=== PATIENT | female | born 1940 | race Caucasian/White ===

== ENCOUNTER → 2024-05-14 | Outpatient (CLI) | payer MEDICARE, SELFPAY ==
[2024-05-14 11:25] LABS: Basophils # (Auto) 0.1 Thou/mm3 (0.0-0.2); Basophils % (Auto) 1 % (0-2.5); Eosinophils # (Auto) 0.4 Thou/mm3 (0.0-0.5); Eosinophils % (Auto) 5 % (0-10); Hematocrit 40.4 % (36.0-46.0); Hemoglobin 12.9 g/dL (12.0-16.0); Immature Granulocytes % (Auto) 0 % (0-0); Immature Granulocytes Auto 0.03 Thou/mm3 (0.00-0.00); Lymphocytes # (Auto) 1.9 Thou/mm3 (1.0-4.8); Lymphocytes % (Auto) 27 % (10-50); Mean Corpuscular HGB Conc 31.9 g/dl (31.0-37.0); Mean Corpuscular Hemoglobin 29.1 pg (25.0-35.0); Mean Corpuscular Volume 91 fL (80-100); Monocytes # (Auto) 0.5 Thou/mm3 (0.0-0.8); Monocytes % (Auto) 8 % (0-12); Neutrophils # (Auto) 4.3 Thou/mm3 (1.8-7.7); Neutrophils % (Auto) 60 % (37-80); Nucleated Red Blood Cell % 0 /100 WBC (0); Platelet Count 373 Thou/mm3 (140-440); Red Blood Count 4.43 Miln/mm3 (4.00-5.20); White Blood Count 7.2 Thou/mm3 (3.6-11.0)
[2024-05-14 11:42] LABS: Alanine Aminotransferase 14 U/L (10-49); Albumin, Serum 4.2 gm/dL (3.4-4.8); Albumin/Globulin Ratio 2.1 (1.2-2.2); Alkaline Phosphatase 42 U/L (46-116); Anion Gap 11 (7-16); Aspartate Amino Transferase 22 U/L (0-34); BUN/Creatinine Ratio 24 Ratio (12-20); Bilirubin,Total 0.5 mg/dL (0.3-1.2); Blood Urea Nitrogen 45 mg/dL (9-23); Calcium 10.7 mg/dL (8.3-10.6); Calcium (Corrected) 10.7 mg/dL (8.5-10.1); Carbon Dioxide 27.5 mMol/L (20.0-31.0); Cardiac Risk Estimate 2.4 RATIO (3.7-5.6); Chloride 103 mMol/L (98-107); Cholesterol 145 mg/dL (132-200); Creatinine (Component) 1.9 mg/dL (0.6-1.3); Glucose 102 mg/dL (74-106); HDL Cholesterol 60 mg/dL (40-60); LDL Cholesterol,Calculated 68 mg/dL (0-130); Osmolality,Calculated 292 (275-295); Potassium 4.9 mMol/L (3.4-5.1); Sodium 141 mMol/L (136-145); Total Protein 6.2 gm/dL (5.7-8.2); Triglycerides 87 mg/dL (30-150); eGFR 26 See Note
== END | disposition home or self-care (01) ==
LOC: COPL 10:45
PROVIDERS: PCP Family Medicine; Referring Provider Family Medicine; Visit Provider Family Medicine
DX: I12.9 Hypertensive chronic kidney disease with stage 1 through stage 4 chronic kidney disease, or unspecified chronic kidney disease (principal); N18.32 Chronic kidney disease, stage 3b; D50.8 Other iron deficiency anemias; E78.2 Mixed hyperlipidemia
CPT/HCPCS: 36415; 80053; 80061; 85025

== ENCOUNTER → 2024-05-23 | Outpatient (CLI) | payer MEDICARE, SELFPAY ==
--- NOTE | 2024-05-23 11:15 | XR_ITS ---
Examination: Screening digital mammography, bilateral Computer aided detection 3-D breast Tomosynthesis, bilateral Date and time of exam: 05/23/2024, 11:02 AM AM Comparisons: 05/22/2023 Indications: Screening Technique: Nonmagnified MLO, CC views of the breasts to been obtained, reconstructed from 3-D Tomosynthesis images. R2 computer aided detection program utilized for evaluation of suspicious masses and/or abnormal calcifications. 3-D Tomosynthesis images obtained. Technologist: Findings: There are scattered areas of fibroglandular density. No evidence of abnormal masses or suspicious calcifications. Impression: BI-RADS category 1: Negative findings (within normal) Recommend 1 year follow-up mammogram
== END | disposition home or self-care (01) ==
LOC: CDIM 10:54
PROVIDERS: Referring Provider Family Medicine; Visit Provider Family Medicine
DX: Z12.31 Encounter for screening mammogram for malignant neoplasm of breast (principal); R92.313 Mammographic fatty tissue density, bilateral breasts
CPT/HCPCS: 77063; 77067

== ENCOUNTER → 2024-07-09 | Outpatient (CLI) | payer MEDICARE, SELFPAY ==
[2024-07-09 10:50] LABS: Misc Send Out* See Sep Rpt
[2024-07-09 11:38] LABS: Basophils # (Auto) 0.1 Thou/mm3 (0.0-0.2); Basophils % (Auto) 1 % (0-2.5); Eosinophils # (Auto) 0.3 Thou/mm3 (0.0-0.5); Eosinophils % (Auto) 3 % (0-10); Hematocrit 39.9 % (36.0-46.0); Hemoglobin 12.5 g/dL (12.0-16.0); Immature Granulocytes % (Auto) 1 % (0-0); Immature Granulocytes Auto 0.09 Thou/mm3 (0.00-0.00); Lymphocytes # (Auto) 2.3 Thou/mm3 (1.0-4.8); Lymphocytes % (Auto) 28 % (10-50); Mean Corpuscular HGB Conc 31.3 g/dl (31.0-37.0); Mean Corpuscular Hemoglobin 29.6 pg (25.0-35.0); Mean Corpuscular Volume 95 fL (80-100); Monocytes # (Auto) 0.6 Thou/mm3 (0.0-0.8); Monocytes % (Auto) 7 % (0-12); Neutrophils # (Auto) 4.9 Thou/mm3 (1.8-7.7); Neutrophils % (Auto) 60 % (37-80); Nucleated Red Blood Cell % 0 /100 WBC (0); Platelet Count 439 Thou/mm3 (140-440); RDW Standard Deviation 54.8 fL (36.4-46.3); Red Blood Count 4.22 Miln/mm3 (4.00-5.20); White Blood Count 8.1 Thou/mm3 (3.6-11.0)
[2024-07-09 11:51] LABS: Creatinine,Random Urine 52 mg/dL (30-125); Protein Total, Random Urine 8 mg/dL (1-14)
[2024-07-09 11:52] LABS: Anion Gap 7 (7-16); BUN/Creatinine Ratio 21 Ratio (12-20); Blood Urea Nitrogen 35 mg/dL (9-23); Calcium 9.9 mg/dL (8.3-10.6); Calcium (Corrected) 9.9 mg/dL (8.5-10.1); Carbon Dioxide 28.3 mMol/L (20.0-31.0); Chloride 105 mMol/L (98-107); Creatinine (Component) 1.7 mg/dL (0.6-1.3); Glucose 108 mg/dL (74-106); Magnesium 1.9 mg/dL (1.6-2.6); Osmolality,Calculated 288 (275-295); Sodium 140 mMol/L (136-145); eGFR 29 See Note
[2024-07-09 11:54] LABS: Ferritin 228 ng/mL (7.3-270.7); Iron 71 mcg/dL (50-170); Percent Iron Saturation 20 % (20-55); Total Iron Binding Capacity 347 mcg/dL (250-425); Unsaturated Iron Binding 276 (225-295)
== END | disposition home or self-care (01) ==
LOC: COPL 10:26
PROVIDERS: PCP Family Medicine; Referring Provider Internal Medicine; Visit Provider Internal Medicine
DX: I13.0 Hypertensive heart and chronic kidney disease with heart failure and stage 1 through stage 4 chronic kidney disease, or unspecified chronic kidney disease (principal); N18.4 Chronic kidney disease, stage 4 (severe); I50.9 Heart failure, unspecified; I25.10 Atherosclerotic heart disease of native coronary artery without angina pectoris
CPT/HCPCS: 36415; 80069; 82306; 82570; 82728; 83540; 83550; 83735; 83970; 84156; 85025

== ENCOUNTER → 2024-10-09 | Outpatient (CLI) | payer MEDICARE, SELFPAY ==
[2024-10-09 12:08] LABS: Albumin, Serum 4.2 gm/dL (3.4-4.8); Anion Gap 10 (7-16); BUN/Creatinine Ratio 20 Ratio (12-20); Blood Urea Nitrogen 38 mg/dL (9-23); Calcium 9.9 mg/dL (8.3-10.6); Calcium (Corrected) 9.9 mg/dL (8.5-10.1); Carbon Dioxide 27.7 mMol/L (20.0-31.0); Chloride 104 mMol/L (98-107); Creatinine (Component) 1.9 mg/dL (0.6-1.3); Glucose 129 mg/dL (74-106); Osmolality,Calculated 294 (275-295); Phosphorous 2.5 mg/dL (2.4-5.1); Potassium 4.8 mMol/L (3.4-5.1); Sodium 142 mMol/L (136-145); eGFR 26 See Note
== END | disposition home or self-care (01) ==
LOC: COPL 11:02
PROVIDERS: PCP Family Medicine; Referring Provider Internal Medicine; Visit Provider Internal Medicine
DX: I13.0 Hypertensive heart and chronic kidney disease with heart failure and stage 1 through stage 4 chronic kidney disease, or unspecified chronic kidney disease (principal); N18.4 Chronic kidney disease, stage 4 (severe); I50.9 Heart failure, unspecified; I25.10 Atherosclerotic heart disease of native coronary artery without angina pectoris
CPT/HCPCS: 36415; 80069

== ENCOUNTER → 2025-01-02 | Outpatient (CLI) | payer MEDICARE, SELFPAY ==
[2025-01-02 11:33] LABS: Basophils # (Auto) 0.1 Thou/mm3 (0.0-0.2); Basophils % (Auto) 1 % (0-2.5); Eosinophils # (Auto) 0.3 Thou/mm3 (0.0-0.5); Eosinophils % (Auto) 3 % (0-10); Hematocrit 39.4 % (36.0-46.0); Hemoglobin 12.4 g/dL (12.0-16.0); Immature Granulocytes Auto 0.04 Thou/mm3 (0.00-0.00); Lymphocytes # (Auto) 2.1 Thou/mm3 (1.0-4.8); Lymphocytes % (Auto) 26 % (10-50); Mean Corpuscular HGB Conc 31.5 g/dl (31.0-37.0); Mean Corpuscular Hemoglobin 29.6 pg (25.0-35.0); Mean Corpuscular Volume 94 fL (80-100); Monocytes # (Auto) 0.5 Thou/mm3 (0.0-0.8); Monocytes % (Auto) 6 % (0-12); Neutrophils # (Auto) 5.2 Thou/mm3 (1.8-7.7); Neutrophils % (Auto) 63 % (37-80); Nucleated Red Blood Cell # 0.00 Thou/mm3 (0.00-0.00); Nucleated Red Blood Cell % 0 /100 WBC (0); Platelet Count 432 Thou/mm3 (140-440); RDW Standard Deviation 50.3 fL (36.4-46.3); Red Blood Count 4.19 Miln/mm3 (4.00-5.20); White Blood Count 8.2 Thou/mm3 (3.6-11.0)
[2025-01-02 11:46] LABS: Albumin, Serum 4.5 gm/dL (3.4-4.8); Anion Gap 10 (7-16); BUN/Creatinine Ratio 17 Ratio (12-20); Blood Urea Nitrogen 29 mg/dL (9-23); Calcium 11.1 mg/dL (8.3-10.6); Calcium (Corrected) 11.1 mg/dL (8.5-10.1); Carbon Dioxide 27.0 mMol/L (20.0-31.0); Chloride 104 mMol/L (98-107); Creatinine (Component) 1.7 mg/dL (0.6-1.3); Glucose 109 mg/dL (74-106); Osmolality,Calculated 288 (275-295); Phosphorous 3.0 mg/dL (2.4-5.1); Potassium 4.4 mMol/L (3.4-5.1); Sodium 141 mMol/L (136-145); eGFR 29 See Note
[2025-01-02 11:48] LABS: Iron 90 mcg/dL (50-170); Percent Iron Saturation 25 % (20-55); Total Iron Binding Capacity 355 mcg/dL (250-425); Unsaturated Iron Binding 265 (225-295)
[2025-01-02 11:55] LABS: Vitamin D 25 Hydroxy Total 45.7 ng/mL (7.3-40.2)
== END | disposition home or self-care (01) ==
LOC: COPL 10:11
PROVIDERS: PCP Family Medicine; Referring Provider Internal Medicine; Visit Provider Internal Medicine
DX: I13.0 Hypertensive heart and chronic kidney disease with heart failure and stage 1 through stage 4 chronic kidney disease, or unspecified chronic kidney disease (principal); N18.4 Chronic kidney disease, stage 4 (severe); I50.9 Heart failure, unspecified
CPT/HCPCS: 36415; 80069; 82306; 83540; 83550; 85025

== ENCOUNTER 2025-01-22 12:21 | Emergency (ER) | payer MEDICARE, SELFPAY ==
--- NOTE | 2025-01-22 | XR_ITS ---
Examination: CT maxillofacial, without intravenous contrast. 2-D sagittal reconstructions. 3-D reconstructions. Date and time of exam: January 22, 2025, 1422 hours INDICATIONS: Patient fell today with injury to the face, facial pain CTDI: vol (mGy): 26.8 DLP: (mGycm): 431 Technique: Multiple axial images of maxillofacial region, 3.0 mm slice thickness. 2-D sagittal and coronal reconstructions. 3-D reconstructions. Low dose protocols were performed. One or more of the following dose reduction techniques were used; automated exposure control, adjustment of the mA and/or KV according to patient size, use of iterative reconstruction technique. Findings: Frontal bones frontal sinuses intact Orbital rims intact No nasal bone fracture. No depression zygomatic arches. Pterygoid plates maxilla and the mandible intact IMPRESSION: No acute facial fracture Optic globes appear intact.
--- NOTE | 2025-01-22 | XR_ITS ---
Examination: CT cervical spine without contrast 2-D sagittal reconstructions 2-D coronal reconstructions 3-D reconstructions. Exam date and time: January 22, 2025, 1422 hours INDICATIONS: Patient fell today with injury to the neck, neck pain CTDI:vol (mGy) 14.7 DLP: (mGycm) 303 Technique: Multiple 2 mm axial sections of the cervical spine have been obtained. The coronal and sagittal reconstructions have been obtained. 3-D reconstructions have been obtained. Low dose protocols were performed. One or more of the following dose reduction techniques were used; automated exposure control, adjustment of the mA and/or KV according to patient size, use of iterative reconstruction technique. Findings: Axial sections demonstrate intact base of the skull. C1 exhibit satisfactory relationship to the odontoid. No acute cervical vertebral body fracture seen. Alignment posterior spinous processes satisfactory. Impression: No acute cervical fracture.
--- NOTE | 2025-01-22 | XR_ITS ---
Examination: CT brain head without contrast. 2-D sagittal coronal reconstructions Date and time of exam: January 22, 2025, 1422 hours INDICATIONS: Ground-level fall today with injury to the head, head pain CTDI: vol (mGy): 51.8 DLP: (mGycm): 1032 Technique: Multiple CT axial sections of the brain have been obtained, 5 mm slice thickness. Contrast has not been administered. 2-D sagittal, coronal reconstructions have been obtained Low dose protocols were performed. One or more of the following dose reduction techniques were used; automated exposure control, adjustment of the mA and/or KV according to patient size, use of iterative reconstruction technique. Findings: No significant ventricular enlargement. Intra-axial or extra-axial hemorrhage density is not seen. No mass effect or midline shift Basal cisterns are not remarkable. Fourth ventricle is midline. Cranial vault intact. Soft tissue left scalp hematoma Impression: Negative for acute hemorrhage, mass effect or midline shift
[2025-01-22 12:39] VITALS: PULSE 88; RESP 17; BMI 25.8
[2025-01-22 12:41] VITALS: BP 191/96; PULSE 85; RESP 15; TEMP 36.7; O2SAT 96
--- NOTE | 2025-01-22 12:46 | PD.EDFALL ---
ED Fall Injury RME/HPI General Chief Complaint: Fall Stated Complaint: FALL Time Seen by Provider: 01/22/25 12:46 Arrival date/time: 01/22/25 12:21 RME / HPI RME / HPI Narrative: See [facility] for Dr. Jamison's HPI documentation. Related Data Home Medications ?Medication ?Instructions ?Recorded ?Confirmed allopurinol 100 mg tablet 100 mg PO QDAY 10/12/20 12/26/23 atorvastatin 40 mg tablet 40 mg PO QPM 10/12/20 12/26/23 fenofibrate 160 mg tablet 160 mg PO QPM 10/12/20 12/26/23 fluticasone furoate 100 1 inh inhalation Q24H 10/12/20 12/26/23 mcg/actuation blister powder for inhalation (Arnuity Ellipta) loratadine 10 mg tablet 10 mg PO QDAY 10/12/20 12/26/23 montelukast 5 mg chewable tablet 5 mg PO QDAY 10/12/20 12/26/23 fluticasone propionate 50 50 mcg intranasal BID 08/10/21 12/26/23 mcg/actuation nasal spray,suspension furosemide 20 mg tablet 20 mg PO QDAY 08/10/21 12/26/23 lisinopril 20 mg tablet 20 mg PO QDAY 08/10/21 12/26/23 amlodipine 5 mg tablet 5 mg PO QDAY 12/26/23 12/26/23 clopidogrel 75 mg tablet 75 mg PO QDAY 12/26/23 12/26/23 Previous Rx's ?Medication ?Instructions ?Recorded aspirin 81 mg chewable tablet 81 mg PO QDAY #30 tabs 12/26/23 acetaminophen 300 mg-codeine 30 mg 2 tab PO Q8H PRN pain #20 tabs 01/22/25 tablet cefdinir 300 mg capsule 300 mg PO BID #14 caps 01/22/25 Allergies Allergy/AdvReac Type Severity Reaction Status Date / Time adhesive tape Allergy Severe Rash Verified 08/10/21 09:31 Sulfa (Sulfonamide Allergy Severe Swelling Verified 10/12/20 09:34 Antibiotics) of Lip/Tongue/Throat Review of Systems Review of Systems Systems Reviewed: All systems reviewed, normal except as documented Past Medical History Past Medical History CARDIAC: Positive Myocardial Infarction, Angina, Coronary Artery Disease, Hypercholesterolemia, Congestive Heart Failure, Edema and Hypertension (with meds) RESPIRATORY: Positive Bronchitis GASTROINTESTINAL: Positive Hemorrhoids GENITOURINARY: Positive Genitourinary Disorders, Renal Disease and Kidney Stones MUSCULOSKELETAL: Positive Musculoskeletal Disorders, Arthritis, Gout and Fractures (chest ,foot) ENT: Positive Cataracts OTHER HISTORY: Positive Blood Transfusions and Radiation Therapy Surgical History SURGICAL: Positive Open Heart Surgery, Coronary Artery Bypass Graft, Coronary Stent (4) and Angiogram Social History SMOKING STATUS: Former smoker ED Exam Narrative Physical exam: See MDM for Dr. Jamison's physical exam documentation. Course Quality Measures none Orders Category Date Time Status Bedside COVID-19 Antigen Test NOW Care 01/22/25 12:47 Completed Saline [Insert IV] NOW Care 01/22/25 12:47 Completed Set Up Suture Tray STAT Care 01/22/25 12:47 Completed Wound Care [Wound Care] NOW Care 01/22/25 12:[address] cervical spine wo con Stat Exams 01/22/[address] facial bones wo con Stat Exams 01/22/[address] head/brain wo con Stat Exams 01/22/25 Completed XR chest 1V portable Stat Exams 01/22/25 12:49 Completed XR elbow comp LT min 3V Stat Exams 01/22/25 18:19 Completed Bilirubin,Direct Stat Lab 01/22/25 13:12 Completed CBC Stat Lab 01/22/25 13:12 Completed CMP [Comprehensive Metabolic Panel] Stat Lab 01/22/25 13:12 Completed Magnesium Stat Lab 01/22/25 13:12 Completed TSH [Thyroid Stimulating Hormone] Stat Lab 01/22/25 13:12 Completed Troponin I Stat Lab 01/22/25 13:12 Completed UA, C/S IF [Urinalysis, C/S if Indicated] Stat Lab 01/22/25 17:28 Completed Urine Culture Stat Lab 01/22/25 17:28 Received Ampicillin/Sulbac Inj [Unasyn Inj] 1.5 gm Med 01/22/25 12:47 Discontinued SODIUM CHLORIDE 0.9% (Popper) [Ns 0.9% (P)] 50 ml IV X1 Bacitracin Oint pkt Med 01/22/25 18:30 Discontinued 1 gm TOP X1 ONE Lidocaine 1% 20 ml [Xylocaine 1% 20 ML] Med 01/22/25 12:47 Discontinued 20 ml INFL X1 ONE Morphine* Inj Med 01/22/25 15:04 Discontinued 2 mg IV X1 ONE Ondansetron Inj [Zofran Inj] Med 01/22/25 12:47 Discontinued 4 mg IVP X1 ONE Sodium Chloride 0.9% 1000 ml [Ns] 1,000 ml Med 01/22/25 12:47 Discontinued IV 999 mls/hr TET,DIP/PERT AC (Adult)-Tdap [Boostrix Adult (Tdap) Med 01/22/25 12:47 Discontinued Vacc] 0.5 ml IMI .ONCE ONE cefTRIAXone/D5w 1gm IV premix [Rocephin/D5w 1gm IV Med 01/22/25 18:12 Discontinued premix] 1 gm in 50 ml IV X1 cloNIDine HCL [Catapres] Med 01/22/25 14:32 Discontinued 0.2 mg PO X1 ONE Vital Signs Vital signs: Vital Signs Temperature 98.1 F 01/22/25 12:41 Pulse Rate 85 01/22/25 12:41 Respiratory Rate 15 01/22/25 12:41 Blood Pressure 191/96 H 01/22/25 12:41 Pulse Oximetry (%) 96 01/22/25 12:41 Oxygen Delivery Method Room Air 01/22/25 12:41 Pulse ox is 96% on room air which is adequate. PROCEDURES: Laceration Laceration 1: Site: scalp Side (If applicable): left (Left parietal area) Size (cm): 3.5 Description: linear Depth: simple, single layer Local Anesthetic: lidocaine 1% Amount of anesthesia used (mL): 8 Pre-repair: wound explored and irrigated extensively Skin layer closed with: nylon Suture size (cm): 3-0 Number of sutures: 5 Technique: simple, interrupted Fall MDM Narrative MDM Narrative:: This section includes all my notes and documentations, including HPI, PE, and ED course. Drake Jamison MD HPI: 84-year-old female here after a mechanical fall just [employer]. Tripped over a curb outside, and landed on the back of her head. Uncertain about loss of consciousness. Reports headache and dizziness. No neck pain or back pain. No chest pain or abdominal pain. Reports left elbow pain. No other complaints. ROS: All negative except as documented in HPI. Physical Exam: General:? Alert and oriented.? No acute distress when remaining still. Eyes:? Conjunctivae and lids clear.? EOMI.? PERRL. ENT: Patent airway. Neck:? Supple.? No tenderness. Heart:? RRR. Lungs:? No respiratory distress.? Good air movement.? No rhonchi, wheezing, rales.? Chest:? No tenderness. Abdomen:? Soft and nontender.? Normal bowel sounds.? No distension.? No rebound or guarding.? Back:? No tenderness.? Skin:? Warm and dry.? In the left parietal scalp, there is a plum sized hematoma with 3.5 full?scalp thickness laceration with active bleeding. Neuro:? Alert and oriented X 3.? Cranial Nerves II-XII grossly intact.? No peripheral motor deficits. Musculoskeletal: Equivocal left elbow tenderness. All other major joints and bones are not tender with no limited ROM. I reviewed EMS notes. I reviewed all diagnostic test results: My interpretation of the chest x-ray is: NAD. My interpretation of the left elbow x-rays is no acute fracture. My review of the CT reports is no acute findings. Blood test unremarkable. UA showed positive leukocyte esterase, 21 RBC, 13 WBC, and bacteria. At this point, diagnoses include: Scalp laceration Head injury Fall UTI Left elbow contusion Treatment here included: IV fluid Zofran 4 mg IV Unasyn 1.5 gram IV Morphine 2 mg IV Laceration repair (see procedure note) Significant improvement noted. Recommended outpatient care. Based on my best medical judgment, made decision no further evaluation or treatment indicated at this time. Patient and daughter understands and agrees to the discharge instructions customized and printed, see below. Discharge instructions from Dr. Jamison: 1. After extensive evaluation, fortunately there is no very serious injury.? Such as brain injury or broken neck or internal organ injury. 2. Your scalp laceration was repaired 5 stitches. -- Keep the current dressing intact for 48 hours. -- After 48 hours, change the dressing once daily. And you can shower. -- First remove the dressing gently.? If it does not come off easily, run water through it until it comes off easily. -- Then gently wash with soap and water. -- After completely drying, apply antibiotic ointment and new dressing. -- See your doctor or return here in 10 days for suture removal.? Total of 5 stitches 3. Take Cefdinir for urine infection. 4. Wear left arm sling for only 4 days. Apply ice for 20 minutes every 2-3 hours today and tomorrow. 5. See a private doctor on 01/25/25 for recheck to make sure you are healing well with no complications. Ask to review all test results and official radiology reports, to make sure you receive all necessary follow-ups and monitoring. 6. Seek immediate medical care with severe and persistent headache, persistent vomiting, being extremely drowsy when you should be completely alert and awake,fever, spreading redness from the wound, or with any concerns. Drake Jamison MD Patient data External records reviewed:: [facility] previous records and EMS form Clinical information provided by:: patient and EMS Social determinants that could affect healthcare access:: none Patient has the following chronic illnesses:: CVA, CAD s/p CABG, chronic back pain, CKD, hypertension How is presenting disease/condition affected by chronic disease/condition?: exacerbated by Evaluation data The following diagnostics were reviewed and interpreted by me:: lab results and radiology exam(s) Lab and/or radiology exams considered but not ordered:: None Interpretation Summary: I reviewed all diagnostic test results: My interpretation of the chest x-ray is: NAD. My interpretation of the left elbow x-rays is no acute fracture. My review of the CT reports is no acute findings. Blood test unremarkable. UA showed positive leukocyte esterase, 21 RBC, 13 WBC, and bacteria. Medications / Prescriptions Medications or Prescriptions considered but not ordered:: None Medication administrations:: Medication Administration History Discontinued Medications Bacitracin (Bacitracin Oint 1 Gm Packet) 1 gm TOP X1 ONE Stop: 01/22/25 18:31 Last Admin: 01/22/25 19:29 Dose: 1 gm Documented By: CB Clonidine (Clonidine Hcl 0.1 Mg Tablet) 0.2 mg PO X1 ONE Stop: 01/22/25 14:33 Last Admin: 01/22/25 18:24 Dose: Not Given Documented By: EF Non-Admin Reason: Change of Condition Diphtheria/Tetanus/Acell Pertussis (Diphth,Pertuss(Acell),Tet Vac 0.5 Ml Syr- Adult) 0.5 ml IMi .ONCE ONE Stop: 01/22/25 12:48 Last Admin: 01/22/25 18:24 Dose: Not Given Documented By: EF Non-Admin Reason: Not Given Comments: patient recently got a TDAP shot Sodium Chloride (Ns) 1,000 mls @ 999 mls/hr IV .Q1H1M ONE Stop: 01/22/25 13:47 Last Infusion: 01/22/25 15:01 Dose: Infused Documented By: Admin: 01/22/25 13:48 Dose: 999 mls/hr Documented By: EF Ampicillin Sodium/Sulbactam (Sodium 1.5 gm/ Sodium Chloride) 50 mls @ 100 mls/hr IV X1 ONE Stop: 01/22/25 12:48 Last Infusion: 01/22/25 14:18 Dose: Infused Documented By: Admin: 01/22/25 13:48 Dose: 100 mls/hr Documented By: EF Ceftriaxone Sodium/Dextrose (Rocephin/D5w 1gm Iv Premix) 1 gm in 50 mls @ 100 mls/hr IV X1 ONE Stop: 01/22/25 18:41 Last Infusion: 01/22/25 19:20 Dose: Infused Documented By: Admin: 01/22/25 18:39 Dose: 100 mls/hr Documented By: EF Lidocaine HCl (Lidocaine Hcl 1% 20 Ml Vial) 20 ml INFL X1 ONE Stop: 01/22/25 12:48 Last Admin: 01/22/25 17:49 Dose: 20 ml Documented By: EF Morphine Sulfate (Morphine Sulf Inj 4 Mg/Ml Vial) 2 mg IV X1 ONE Stop: 01/22/25 15:05 Last Admin: 01/22/25 15:39 Dose: 2 mg Documented By: EF Ondansetron HCl (Ondansetron Inj 2 Mg/Ml Inj 2 Ml) 4 mg IVP X1 ONE; Protocol Stop: 01/22/25 12:48 Last Admin: 01/22/25 13:48 Dose: 4 mg Documented By: EF Treatment here included: IV fluid Zofran 4 mg IV Unasyn 1.5 gram IV Morphine 2 mg IV Laceration repair (see procedure note) Consultations Consultation(s) initiated? (list below): No Diagnosis Fall Differential Diagnosis: syncope, dislocation of shoulder region, fracture of wrist and compression fracture Most likely diagnosis given after review of the tests above:: At this point, diagnoses include: Scalp laceration Head injury Fall UTI Left elbow contusion Admission Indicated Admission indicated?: not indicated Explain why admission is indicated or not indicated:: With significant improvement and no condition needing emergent intervention, there was no indication for admission. Admission Request Was there a request for admission?: No Disposition Plan Disposition Plan: Discharge Discharge Attestation Discharge Attestation: The patient and all family members were given an opportunity to ask questions and understood the discharge instructions. Discharge instructions specifically effects, indications for sooner follow up or return to the emergency department, and the expected course of current diagnosis. Patient condition: Stable Discharge Plan Plan Patient Disposition: HOME (Self Care) Prescriptions/Referrals Prescriptions/Med Rec: New acetaminophen-codeine 300-30 mg tablet 2 tab PO Q8H MDD 6 PRN (Reason: pain) Qty: 20 0RF cefdinir 300 mg capsule 300 mg PO BID Qty: 14 0RF No Action atorvastatin 40 mg Tablet 40 mg PO QPM fenofibrate 160 mg Tablet 160 mg PO QPM montelukast 5 mg Tablet,Chewable 5 mg PO QDAY allopurinol 100 mg Tablet 100 mg PO QDAY loratadine 10 mg Tablet 10 mg PO QDAY Arnuity Ellipta 100 mcg/actuation Blister With Device 1 inh INHALATION Q24H lisinopril 20 mg Tablet 20 mg PO QDAY furosemide 20 mg Tablet 20 mg PO QDAY fluticasone propionate 50 mcg/actuation [place],Suspension 50 mcg INTRANASAL BID Protocol: Age Greater than 75 Protocol Text: Age less than 75 years, to be administred with initial in subcutaneous dose Rx Instructions: [place] once in both nostrils in the morning and before bed. clopidogrel 75 mg tablet 75 mg PO QDAY amlodipine 5 mg Tablet 5 mg PO QDAY aspirin 81 mg Tablet,Chewable 81 mg PO QDAY Qty: 30 0RF Referrals: No Primary/Family,Physician [Primary Care Provider] - In 1 week Problem List Clinical Impression: Scalp laceration, Head injury, Fall, UTI (urinary tract infection), Left elbow contusion Patient/Caregiver Discharge Instructions Discharge Activity: activity as tolerated Education Materials: ED Contusion, Elbow, ED Head Injury (Adult), ED Laceration Scalp Sutures or ..., ED CYSTITIS Female Adult Additional Instructions: Discharge instructions from Dr. Yaquelin: 1. After extensive evaluation, fortunately there is no very serious injury.? Such as brain injury or broken neck or internal organ injury. 2. Your scalp laceration was repaired 5 stitches. -- Keep the current dressing intact for 48 hours. -- After 48 hours, change the dressing once daily. And you can shower. -- First remove the dressing gently.? If it does not come off easily, run water through it until it comes off easily. -- Then gently wash with soap and water. -- After completely drying, apply antibiotic ointment and new dressing. -- See your doctor or return here in 10 days for suture removal.? Total of 5 stitches 3. Take Cefdinir for urine infection. 4. Wear left arm sling for only 4 days. Apply ice for 20 minutes every 2-3 hours today and tomorrow. 5. See a private doctor on 01/25/25 for recheck to make sure you are healing well with no complications. Ask to review all test results and official radiology reports, to make sure you receive all necessary follow-ups and monitoring. 6. Seek immediate medical care with severe and persistent headache, persistent vomiting, being extremely drowsy when you should be completely alert and awake,fever, spreading redness from the wound, or with any concerns. Print Language: [place] Stand Alone Forms: [employer] Info., Patient Portal Info Letter
--- NOTE | 2025-01-22 12:49 | XR_ITS ---
EXAMINATION: AP chest single view TECHNIQUE: AP portable upright chest single view Date and time: January 22, 2025, 1304 hours INDICATIONS: Ground-level fall today with injury to the chest, chest pain. FINDINGS: Mild prominence left ventricle CABG No pneumothorax or pulmonary contusion Prominent osteopenia Clavicles ribs appear intact IMPRESSION: No pneumothorax pulmonary contusion or hemothorax
--- NOTE | 2025-01-22 13:12 | PC.NURSE ---
patient BIBA for a fall. per patient she was walking to [employer] and missed the curb step an fell resulting on a lac to her head. patient stated shes on blood thinners and denies LOC.
[2025-01-22 13:28] LABS: Basophils # (Auto) 0.1 Thou/mm3 (0.0-0.2); Basophils % (Auto) 1 % (0-2.5); Eosinophils # (Auto) 0.3 Thou/mm3 (0.0-0.5); Eosinophils % (Auto) 2 % (0-10); Hematocrit 37.4 % (36.0-46.0); Hemoglobin 11.9 g/dL (12.0-16.0); Immature Granulocytes Auto 0.06 Thou/mm3 (0.00-0.00); Lymphocytes # (Auto) 2.1 Thou/mm3 (1.0-4.8); Lymphocytes % (Auto) 18 % (10-50); Mean Corpuscular HGB Conc 31.8 g/dl (31.0-37.0); Mean Corpuscular Hemoglobin 29.7 pg (25.0-35.0); Mean Corpuscular Volume 93 fL (80-100); Monocytes # (Auto) 0.6 Thou/mm3 (0.0-0.8); Monocytes % (Auto) 5 % (0-12); Neutrophils # (Auto) 8.4 Thou/mm3 (1.8-7.7); Neutrophils % (Auto) 73 % (37-80); Nucleated Red Blood Cell # 0.00 Thou/mm3 (0.00-0.00); Nucleated Red Blood Cell % 0 /100 WBC (0); Platelet Count 381 Thou/mm3 (140-440); RDW Standard Deviation 50.3 fL (36.4-46.3); Red Blood Count 4.01 Miln/mm3 (4.00-5.20); White Blood Count 11.6 Thou/mm3 (3.6-11.0)
[2025-01-22 13:47] LABS: Alanine Aminotransferase 12 U/L (10-49); Albumin, Serum 4.3 gm/dL (3.4-4.8); Albumin/Globulin Ratio 2.5 (1.2-2.2); Alkaline Phosphatase 38 U/L (46-116); Anion Gap 10 (7-16); Aspartate Amino Transferase 23 U/L (0-34); BUN/Creatinine Ratio 19 Ratio (12-20); Bilirubin,Direct 0.2 mg/dL (0.0-0.3); Bilirubin,Total 0.4 mg/dL (0.3-1.2); Blood Urea Nitrogen 35 mg/dL (9-23); Calcium 9.7 mg/dL (8.3-10.6); Calcium (Corrected) 9.7 mg/dL (8.5-10.1); Carbon Dioxide 24.6 mMol/L (20.0-31.0); Chloride 106 mMol/L (98-107); Creatinine (Component) 1.8 mg/dL (0.6-1.3); Estimated Creatinine Clearance 23.7 mL/min (>60); Globulin 1.7 gm/dL (2.3-3.5); Glucose 125 mg/dL (74-106); Magnesium 1.9 mg/dL (1.6-2.6); Osmolality,Calculated 290 (275-295); Potassium 4.9 mMol/L (3.4-5.1); Sodium 141 mMol/L (136-145); Thyroid Stimulating Hormone 1.73 uIU/mL (0.55-4.78); Total Protein 6.0 gm/dL (5.7-8.2); Troponin I < 0.020 ng/mL (0.0-0.045); eGFR 27 See Note
[2025-01-22] MEDS: SODIUM CHLORIDE 0.9% 1000 ML 1,000 ML 999 ML IV (13:48)
[2025-01-22] MEDS: ONDANSETRON INJ 2 MG/ML INJ 2 ML 4 MG IVP (13:48)
[2025-01-22] MEDS: AMPICILLIN/SULBAC INJ 1.5 GM in SODIUM CHLORIDE 0.9% (Popper) 50 ML IV (13:48)
[2025-01-22] MEDS: MORPHINE SULF INJ 4 MG/ML VIAL 2 MG IV (15:39)
[2025-01-22 17:33] LABS: Collection Type, Urine Clean Catch
[2025-01-22 17:44] LABS: Bacteria,Urine Rare; Bilirubin,Urine Negative (Negative); Blood,Urine Negative (Negative); Clarity,Urine Clear (Clear/Hazy); Color,Urine Yellow (Lt Yel-Yel); Glucose, Urine Negative (Negative); Hyaline Casts,Urine < 1 /hpf (0-1); Ketones,Urine Negative (Negative); Leukocyte Esterase,Urine Positive (Negative); Nitrite,Urine Negative (Negative); PH,Urine 6.0 (5.0-7.0); Protein,Urine Negative (Neg - Trace); RBC,Urine 21 /hpf (0-3); Specific Gravity,Urine 1.021 (1.001-1.035); Squamous Epithelial Cell,Urine 1 /hpf (0-5); Urobilinogen,Urine Negative mg/dL (0.0-1.0); WBC,Urine 13 /hpf (0-5)
[2025-01-22] MEDS: LIDOCAINE HCL 1% 20 ML VIAL INFL (17:49)
[2025-01-22 17:55] LABS: Culture Indicated,Urine Yes
--- NOTE | 2025-01-22 18:19 | XR_ITS ---
Examination: Left elbow 3 views Technique: Elbow AP, oblique, lateral 3 views Exam date and time: January 22, 2025, 1844 hours INDICATIONS: Patient fell today with injury to the elbow, elbow pain. FINDINGS: No fracture or dislocation No foreign body IMPRESSION: No fracture or dislocation.
[2025-01-22] MEDS: cefTRIAXone/D5w 1gm IV premix 1 GM/50 ML BAG IV (18:39)
[2025-01-22] MEDS: BACITRACIN OINT 1 GM PACKET TOP (19:29)
[2025-01-22 19:39] VITALS: BP 121/76; PULSE 76; RESP 16; TEMP 36.8; O2SAT 98
== END 2025-01-22 19:40 | disposition home or self-care (01) ==
PROVIDERS: Emergency Provider Emergency Medicine
DX: S01.01XA Laceration without foreign body of scalp, initial encounter (principal); N39.0 Urinary tract infection, site not specified; S50.02XA Contusion of left elbow, initial encounter; W01.0XXA Fall on same level from slipping, tripping and stumbling without subsequent striking against object, initial encounter
CPT/HCPCS: 12002; 36415; 70450; 70486; 71045; 72125; 73080; 80053; 81001; 82248; 83735; 84443; 84484; 85025; 87086; 87502; 96361; 96365; 96375; 99285; J0295; J0696; J2270; J2405; J3490; J7030; J7050; A9270

== ENCOUNTER → 2025-03-06 | Outpatient (CLI) | payer MEDICARE, SELFPAY ==
[2025-03-06 10:12] LABS: Basophils # (Auto) 0.1 Thou/mm3 (0.0-0.2); Basophils % (Auto) 1 % (0-2.5); Eosinophils # (Auto) 0.2 Thou/mm3 (0.0-0.5); Eosinophils % (Auto) 3 % (0-10); Hematocrit 36.8 % (36.0-46.0); Hemoglobin 11.4 g/dL (12.0-16.0); Immature Granulocytes Auto 0.03 Thou/mm3 (0.00-0.00); Lymphocytes # (Auto) 1.9 Thou/mm3 (1.0-4.8); Lymphocytes % (Auto) 27 % (10-50); Mean Corpuscular HGB Conc 31.0 g/dl (31.0-37.0); Mean Corpuscular Hemoglobin 29.2 pg (25.0-35.0); Mean Corpuscular Volume 94 fL (80-100); Monocytes # (Auto) 0.5 Thou/mm3 (0.0-0.8); Monocytes % (Auto) 7 % (0-12); Neutrophils # (Auto) 4.2 Thou/mm3 (1.8-7.7); Neutrophils % (Auto) 60 % (37-80); Nucleated Red Blood Cell # 0.00 Thou/mm3 (0.00-0.00); Nucleated Red Blood Cell % 0 /100 WBC (0); Platelet Count 444 Thou/mm3 (140-440); RDW Standard Deviation 52.0 fL (36.4-46.3); Red Blood Count 3.91 Miln/mm3 (4.00-5.20); White Blood Count 7.0 Thou/mm3 (3.6-11.0)
== END | disposition home or self-care (01) ==
LOC: COPL 09:05
PROVIDERS: PCP Family Medicine; Referring Provider Family Medicine; Visit Provider Family Medicine
DX: D50.8 Other iron deficiency anemias (principal)
CPT/HCPCS: 36415; 85025

== ENCOUNTER → 2025-03-10 | Outpatient (CLI) | payer MEDICARE, SELFPAY ==
--- NOTE | 2025-03-10 | XR_ITS ---
Examination: Left hip AP, lateral, AP pelvis 3 views Technique: Hip AP lateral, AP pelvis, 3 views Exam date and time: March 10, 2025, 1148 hours INDICATION: Patient fell January 22, 2025 with injury of the hip, hip pain. FINDINGS: Severe osteopenia. No left hip fracture or hip dislocation Right hip bones of the pelvis intact Moderate narrowing hip joints IMPRESSION: Moderate narrowing hip joints.
== END | disposition home or self-care (01) ==
LOC: CDIM 11:05
PROVIDERS: PCP Family Medicine; Referring Provider Family Medicine; Visit Provider Family Medicine
DX: S79.912A Unspecified injury of left hip, initial encounter (principal); W19.XXXA Unspecified fall, initial encounter
CPT/HCPCS: 73502